=== PATIENT | female | born 1950 | race Caucasian/White ===

== ENCOUNTER 2017-04-15 13:51 | Inpatient (IN) | payer OTHER ==
[~2017-04-15] VITALS: Ht 157.5 cm; Wt 49.8 kg
[~2017-04-15 13:51] MED LIST: ALBU8.5H8 INH; DIAZ2TAB PO; LOSA100T6 PO; MORP-52 PO; PERCOCET PO; PREMARIN PO; XANAX PO; ZOLOFT PO
[2017-04-15] MEDS ORDERED: SODIUM CHLORIDE 0.9% 1,000ML IVBOLUS ONE (15:00)
[2017-04-15] MEDS ORDERED: ONDANSETRON 2MG/ML, 2ML IVPush ONE (15:00)
[2017-04-15 15:20] LABS: BASOPHILS # (AUTO) 0.02 x10^3/uL (0-0.1); BASOPHILS % (AUTO) 0 % (0-1); EOSINOPHILS % (AUTO) 0 % (1-7); LYMPHOCYTES # (AUTO) 2.04 x10^3/uL (1-3.4); LYMPHOCYTES % (AUTO) 21 % (22-44); MD NO; MEAN CORPUSCULAR HGB CONC 34.5 g/dL (32.4-35.8); MEAN CORPUSCULAR VOLUME 95.9 fL (80-100); MEAN PLATELET VOLUME 8.2 fL (7.4-10.4); MONOCYTES # (AUTO) 0.91 x10^3/uL (0.2-0.8); MONOCYTES % (AUTO) 10 % (2-9); NEUTROPHILS # (AUTO) 6.63 x10^3/uL (1.8-6.8); NEUTROPHILS % (AUTO) 69 % (42-75); PLATELET COUNT 386 x10^3/uL (130-400); RED BLOOD COUNT 4.65 x10^6/uL (3.82-5.3); RED CELL DISTRIBUTION WIDTH 13.8 % (9.6-15.2)
[2017-04-15] MEDS ORDERED: ONDANSETRON 2MG/ML, 2ML ONE (15:20)
[2017-04-15 15:45] LABS: ALANINE AMINOTRANSFERASE 15 U/L (12-78); ALBUMIN 3.4 g/dL (3.4-5.0); ALKALINE PHOSPHATASE 122 U/L (45-117); ANION GAP 15 mmol/L (5-15); BILIRUBIN,TOTAL 0.4 mg/dL (0.2-1.0); CALCIUM 8.4 mg/dL (8.5-10.1); CHLORIDE 98 mmol/L (98-107); CREATININE 2.77 mg/dL (0.55-1.02); TOTAL PROTEIN 8.2 g/dL (6.4-8.2)
[2017-04-15] MEDS ORDERED: SODIUM CHLORIDE 0.9% 1,000 ML IV ONE (16:17)
[2017-04-15 16:28] LABS: CLOSTRIDIUM DIFFICILE ANTIGEN NEGATIVE; CLOSTRIDIUM DIFFICILE TOXIN NEGATIVE (Negative)
[2017-04-15] MEDS ORDERED: MORPHINE SULFATE 4 MG/ML, 1ML IVPush PRN (16:30)
[2017-04-15] MEDS ORDERED: MORPHINE SULFATE 4 MG/ML, 1ML ONE (16:40)
[2017-04-15 18:04] LABS: MICROSCOPIC INDICATED
[2017-04-15 18:16] LABS: CULTURE INDICATED? YES
[2017-04-15] MEDS ORDERED: POTASSIUM CHLORIDE 40 MEQ in SODIUM CHLORIDE 0.9% 500 ML IV ONE (18:30)
[2017-04-15] MEDS ORDERED: NS + 20MEQ KCL 1,000 ML IV SCH (18:41)
[2017-04-15] MEDS ORDERED: DOCUSATE 100 MG CAPSULE PO PRN (19:00)
[2017-04-15] MEDS ORDERED: ACETAMINOPHEN 325 MG TABLET PO PRN (19:00)
[2017-04-15] MEDS ORDERED: POLYETHYLENE GLYCOL 17 GM PACKET PO PRN (19:00)
[2017-04-15] MEDS ORDERED: LOSA50TA6 PO (20:49)
[2017-04-15] MEDS ORDERED: ALPR-475 PO (20:49)
[2017-04-15] MEDS ORDERED: VENL150C PO (20:49)
[2017-04-15 21:02] VITALS: BP 107/69
[2017-04-15] MEDS: morphine SULFATE 10 MG/ML, 1ML IVPush PRN (22:00)
[2017-04-15] MEDS: HEPARIN 5,000 UNITS/ML, 1ML SQ SCH (22:01)
[2017-04-15 23:14] LABS: ANION GAP 11 mmol/L (5-15); CALCIUM 7.2 mg/dL (8.5-10.1); CHLORIDE 107 mmol/L (98-107); CREATININE 2.07 mg/dL (0.55-1.02)
[2017-04-15] MEDS ORDERED: MAGNESIUM SULFATE PMX 4GM/100M 100 ML IV ONE (23:30)
[2017-04-15] MEDS ORDERED: POTASSIUM CHLORIDE 20 MEQ TAB.ER.PRT PO SCH (23:30)
[2017-04-16 00:45] VITALS: BP 115/66
[2017-04-16] MEDS: morphine SULFATE 10 MG/ML, 1ML IVPush PRN ×4 (03:33→19:04)
[2017-04-16] MEDS: HEPARIN 5,000 UNITS/ML, 1ML SQ SCH ×3 (04:31→22:14)
[2017-04-16 06:32] LABS: CHLORIDE 110 mmol/L (98-107)
[2017-04-16 06:38] LABS: ANION GAP 10 mmol/L (5-15); CALCIUM 7.9 mg/dL (8.5-10.1); CREATININE 1.79 mg/dL (0.55-1.02)
[2017-04-16 06:40] VITALS: BP 144/80
[2017-04-16] MEDS ORDERED: POTASSIUM CHLORIDE 20 MEQ TAB.ER.PRT PO SCH (08:00)
[2017-04-16] MEDS: LOPERAMIDE 2 MG CAPSULE PO PRN ×3 (08:24→19:04)
[2017-04-16] MEDS ORDERED: MORPHINE SULFATE 4 MG/ML, 1ML ONE ×3 (08:30→19:00)
[2017-04-16] MEDS: POTASSIUM CHLORIDE 20 MEQ TAB.ER.PRT PO SCH ×2 (09:27→22:14)
[2017-04-16] MEDS: SODIUM CHLORIDE 0.9% 1,000 ML IV SCH ×2 (12:14→12:26)
[2017-04-16 13:15] VITALS: BP 108/70
[2017-04-16 20:29] VITALS: BP 103/62
[2017-04-16] MEDS: ONDANSETRON 2MG/ML, 2ML IVPush PRN (22:14)
[2017-04-16] MEDS: HYDROcodone/APAP 5/325 TABLET PO PRN (22:14)
[2017-04-17] MEDS: HYDROcodone/APAP 5/325 TABLET PO PRN ×4 (01:59→20:33)
[2017-04-17] MEDS: LOPERAMIDE 2 MG CAPSULE PO PRN ×3 (01:59→15:07)
[2017-04-17 02:03] VITALS: BP 127/77
[2017-04-17] MEDS: HEPARIN 5,000 UNITS/ML, 1ML SQ SCH ×3 (05:54→20:33)
[2017-04-17 07:20] VITALS: BP 137/91
[2017-04-17] MEDS: SODIUM CHLORIDE 0.9% 1,000 ML IV SCH ×2 (08:27→19:32)
[2017-04-17 09:58] LABS: ANION GAP 8 mmol/L (5-15); CALCIUM 7.7 mg/dL (8.5-10.1); CHLORIDE 116 mmol/L (98-107); CREATININE 1.29 mg/dL (0.55-1.02)
[2017-04-17] MEDS: POTASSIUM CHLORIDE 20 MEQ TAB.ER.PRT PO SCH ×3 (10:07→20:34)
[2017-04-17 12:35] VITALS: BP 120/73
[2017-04-17] MEDS ORDERED: GADOBUTROL 7.5 MMOL/7.5 ML PFS ONE (13:04)
[2017-04-17] MEDS ORDERED: MORPHINE SULFATE 4 MG/ML, 1ML ONE (16:39)
[2017-04-17] MEDS: morphine SULFATE 10 MG/ML, 1ML IVPush PRN ×2 (16:48→22:32)
[2017-04-17 21:03] VITALS: BP 112/73
[2017-04-17 23:00] VITALS: BP 144/82
[2017-04-18 03:05] VITALS: BP 138/80
[2017-04-18] MEDS: morphine SULFATE 10 MG/ML, 1ML IVPush PRN (03:27)
[2017-04-18] MEDS: SODIUM CHLORIDE 0.9% 1,000 ML IV SCH (03:31)
[2017-04-18] MEDS: HEPARIN 5,000 UNITS/ML, 1ML SQ SCH ×3 (05:00→22:02)
[2017-04-18 06:02] LABS: ANION GAP 7 mmol/L (5-15); CALCIUM 7.3 mg/dL (8.5-10.1); CHLORIDE 120 mmol/L (98-107); CREATININE 1.13 mg/dL (0.55-1.02)
[2017-04-18 07:00] VITALS: BP 133/77
[2017-04-18] MEDS: POTASSIUM CHLORIDE 20 MEQ TAB.ER.PRT PO SCH ×3 (08:00→22:00)
[2017-04-18] MEDS: HYDROcodone/APAP 5/325 TABLET PO PRN ×4 (08:57→22:02)
[2017-04-18] MEDS: LOPERAMIDE 2 MG CAPSULE PO PRN (08:59)
[2017-04-18] MEDS: CHOLESTYRAMINE LIGHT 4GM PACKET PO SCH ×2 (12:36→22:00)
[2017-04-18 13:04] VITALS: BP 137/78
[2017-04-18] MEDS ORDERED: OMNIPAQUE 350 MG/ML, 100ML BOTTLE ONE (17:15)
[2017-04-18] MEDS: PANCRELIPASE 24,000 CAPSULE.DR PO SCH (18:02)
[2017-04-18 20:37] VITALS: BP 145/91
[2017-04-19 00:58] VITALS: BP 115/77
[2017-04-19] MEDS: HYDROcodone/APAP 5/325 TABLET PO PRN ×5 (05:07→22:40)
[2017-04-19] MEDS: HEPARIN 5,000 UNITS/ML, 1ML SQ SCH ×3 (05:07→20:25)
[2017-04-19 06:02] LABS: ANION GAP 10 mmol/L (5-15); CALCIUM 7.7 mg/dL (8.5-10.1); CHLORIDE 115 mmol/L (98-107)
[2017-04-19 06:04] LABS: CREATININE 1.09 mg/dL (0.55-1.02)
[2017-04-19 07:38] VITALS: BP 112/68
[2017-04-19] MEDS: POTASSIUM CHLORIDE 20 MEQ TAB.ER.PRT PO SCH ×2 (09:00→20:22)
[2017-04-19] MEDS: LOPERAMIDE 2 MG CAPSULE PO PRN ×2 (09:29→16:27)
[2017-04-19] MEDS: PANCRELIPASE 24,000 CAPSULE.DR PO SCH ×3 (09:29→16:27)
[2017-04-19] MEDS: CHOLESTYRAMINE LIGHT 4GM PACKET PO SCH ×2 (09:29→20:17)
[2017-04-19] MEDS: ONDANSETRON 2MG/ML, 2ML IVPush PRN ×3 (09:31→20:23)
[2017-04-19] MEDS ORDERED: MORPHINE SULFATE 4 MG/ML, 1ML ONE (11:35)
[2017-04-19] MEDS: morphine SULFATE 10 MG/ML, 1ML IVPush PRN ×3 (11:41→20:23)
[2017-04-19] MEDS ORDERED: POTASSIUM PHOSPHATE 22 MEQ in SODIUM CHLORIDE 0.9% 500 ML IV ONE (12:00)
[2017-04-19] MEDS ORDERED: MAGNESIUM SULFATE PMX 4GM/100M 100 ML IV ONE (12:00)
[2017-04-19 13:39] VITALS: BP 131/81
[2017-04-19 17:35] LABS: BASOPHILS # (AUTO) 0.02 x10^3/uL (0-0.1); BASOPHILS % (AUTO) 0 % (0-1); EOSINOPHILS # (AUTO) 0.01 x10^3/uL (0-0.4); EOSINOPHILS % (AUTO) 0 % (1-7); INTERNATIONAL NORMALIZED RATIO 0.92 (0.93-1.1); LYMPHOCYTES # (AUTO) 2.52 x10^3/uL (1-3.4); LYMPHOCYTES % (AUTO) 46 % (22-44); MD NO; MEAN CORPUSCULAR HEMOGLOBIN 32.2 pg (27.0-34.8); MEAN CORPUSCULAR VOLUME 97.6 fL (80-100); MEAN PLATELET VOLUME 7.8 fL (7.4-10.4); MONOCYTES # (AUTO) 0.46 x10^3/uL (0.2-0.8); MONOCYTES % (AUTO) 9 % (2-9); NEUTROPHILS # (AUTO) 2.43 x10^3/uL (1.8-6.8); NEUTROPHILS % (AUTO) 45 % (42-75); PLATELET COUNT 364 x10^3/uL (130-400); PROTHROMBIN TIME 9.6 Seconds (9.6-11.5); RED BLOOD COUNT 3.69 x10^6/uL (3.82-5.3); RED CELL DISTRIBUTION WIDTH 13.7 % (9.6-15.2)
[2017-04-19 17:40] LABS: ALANINE AMINOTRANSFERASE 14 U/L (12-78); ALBUMIN 2.7 g/dL (3.4-5.0); ANION GAP 10 mmol/L (5-15); BILIRUBIN, DIRECT 0.1 mg/dL (0.1-0.2); CALCIUM 8.3 mg/dL (8.5-10.1); CHLORIDE 108 mmol/L (98-107); CREATININE 1.16 mg/dL (0.55-1.02)
[2017-04-19 17:42] LABS: ALKALINE PHOSPHATASE 102 U/L (45-117); BILIRUBIN,INDIRECT 0.1 mg/dL (0.0-2.0); BILIRUBIN,TOTAL 0.2 mg/dL (0.2-1.0); TOTAL PROTEIN 6.6 g/dL (6.4-8.2)
[2017-04-19 20:30] VITALS: BP 154/90
[2017-04-20] MEDS: morphine SULFATE 10 MG/ML, 1ML IVPush PRN ×6 (02:22→23:01)
[2017-04-20 02:27] VITALS: BP 121/70
[2017-04-20 05:26] LABS: ALBUMIN 2.9 g/dL (3.4-5.0); CHLORIDE 113 mmol/L (98-107)
[2017-04-20] MEDS: HEPARIN 5,000 UNITS/ML, 1ML SQ SCH ×3 (05:30→21:16)
[2017-04-20 05:31] LABS: ALANINE AMINOTRANSFERASE 14 U/L (12-78); ALKALINE PHOSPHATASE 106 U/L (45-117); ANION GAP 11 mmol/L (5-15); BILIRUBIN,TOTAL 0.2 mg/dL (0.2-1.0); CALCIUM 8.2 mg/dL (8.5-10.1); CREATININE 1.23 mg/dL (0.55-1.02); TOTAL PROTEIN 6.6 g/dL (6.4-8.2)
[2017-04-20] MEDS: PANCRELIPASE 24,000 CAPSULE.DR PO SCH ×3 (08:00→16:37)
[2017-04-20] MEDS: POTASSIUM CHLORIDE 20 MEQ TAB.ER.PRT PO SCH ×3 (08:33→21:00)
[2017-04-20] MEDS: CHOLESTYRAMINE LIGHT 4GM PACKET PO SCH ×2 (08:34→21:00)
[2017-04-20 08:37] VITALS: BP 119/76
[2017-04-20] MEDS: SODIUM CHLORIDE 0.9% 1,000 ML IV SCH ×3 (08:42→23:35)
[2017-04-20] MEDS ORDERED: LOPERAMIDE 2 MG CAPSULE PO PRN (13:00)
[2017-04-20] MEDS: LOPERAMIDE 2 MG CAPSULE PO SCH ×2 (13:26→19:28)
[2017-04-20 14:19] VITALS: BP 121/70
[2017-04-20] MEDS: HYDROcodone/APAP 5/325 TABLET PO PRN ×2 (14:55→21:19)
[2017-04-20] MEDS: ONDANSETRON 2MG/ML, 2ML IVPush PRN (19:28)
[2017-04-20 19:44] VITALS: BP 130/74
[2017-04-21] MEDS: LOPERAMIDE 2 MG CAPSULE PO SCH ×2 (01:25→08:15)
[2017-04-21] MEDS: HYDROcodone/APAP 5/325 TABLET PO PRN ×2 (04:12→09:23)
[2017-04-21] MEDS: HEPARIN 5,000 UNITS/ML, 1ML SQ SCH (05:00)
[2017-04-21 05:14] LABS: BASOPHILS # (AUTO) 0.01 x10^3/uL (0-0.1); BASOPHILS % (AUTO) 0 % (0-1); EOSINOPHILS # (AUTO) 0.01 x10^3/uL (0-0.4); EOSINOPHILS % (AUTO) 0 % (1-7); LYMPHOCYTES # (AUTO) 1.85 x10^3/uL (1-3.4); LYMPHOCYTES % (AUTO) 33 % (22-44); MD NO; MEAN CORPUSCULAR HEMOGLOBIN 33.2 pg (27.0-34.8); MEAN CORPUSCULAR HGB CONC 34.2 g/dL (32.4-35.8); MEAN CORPUSCULAR VOLUME 96.9 fL (80-100); MONOCYTES # (AUTO) 0.56 x10^3/uL (0.2-0.8); MONOCYTES % (AUTO) 10 % (2-9); NEUTROPHILS # (AUTO) 3.23 x10^3/uL (1.8-6.8); NEUTROPHILS % (AUTO) 57 % (42-75); PLATELET COUNT 364 x10^3/uL (130-400); RED BLOOD COUNT 3.16 x10^6/uL (3.82-5.3)
[2017-04-21 05:17] VITALS: BP 130/79
[2017-04-21 05:24] LABS: CHLORIDE 113 mmol/L (98-107)
[2017-04-21 05:37] LABS: ALANINE AMINOTRANSFERASE 11 U/L (12-78); ALBUMIN 2.5 g/dL (3.4-5.0); ALKALINE PHOSPHATASE 97 U/L (45-117); ANION GAP 10 mmol/L (5-15); BILIRUBIN,TOTAL 0.5 mg/dL (0.2-1.0); CALCIUM 7.6 mg/dL (8.5-10.1); TOTAL PROTEIN 5.9 g/dL (6.4-8.2)
[2017-04-21] MEDS: PANCRELIPASE 24,000 CAPSULE.DR PO SCH (08:15)
[2017-04-21] MEDS: SODIUM CHLORIDE 0.9% 1,000 ML IV SCH (08:15)
[2017-04-21] MEDS: morphine SULFATE 10 MG/ML, 1ML IVPush PRN (08:21)
[2017-04-21 08:36] VITALS: BP 119/76
[2017-04-21] MEDS ORDERED: POTASSIUM CHLORIDE 20 MEQ TAB.ER.PRT PO SCH (09:00)
[2017-04-21] MEDS: CHOLESTYRAMINE LIGHT 4GM PACKET PO SCH (09:00)
== END 2017-04-21 12:52 | disposition left against medical advice (07) | DRG 391 ==
LOC: ED 17:32 → EDIP 18:37 → SUATTDRO 18:39 → 5SO 21:14 → 3NE 04-17 22:00
PROVIDERS: ADMIT Family Medicine; ATTEND Family Medicine
DX: K52.9 Noninfective gastroenteritis and colitis, unspecified (principal); N17.0 Acute kidney failure with tubular necrosis; E83.39 Other disorders of phosphorus metabolism; E87.1 Hypo-osmolality and hyponatremia; E83.42 Hypomagnesemia; M41.9 Scoliosis, unspecified; J44.9 Chronic obstructive pulmonary disease, unspecified; E86.0 Dehydration; E87.6 Hypokalemia; G89.29 Other chronic pain; R33.9 Retention of urine, unspecified; R15.9 Full incontinence of feces; K80.20 Calculus of gallbladder without cholecystitis without obstruction; N18.9 Chronic kidney disease, unspecified; I25.2 Old myocardial infarction; Z83.3 Family history of diabetes mellitus; Z90.710 Acquired absence of both cervix and uterus
CPT/HCPCS: 36415; 72158; 74176; 74177; 76700; 80048; 80053; 81001; 82247; 82248; 83605; 83690; 83735; 84100; 85025; 85610; 87086; 87324; 89055; 93005; 96361; 96365; 96375; A9585; J1644; J2405; J3480; Q9967; J2270; J3475; J7030; J7040

== ENCOUNTER 2020-08-01 15:04 | Emergency (ER) | payer OTHER ==
[~2020-08-01] VITALS: Ht 157.5 cm; Wt 39.9 kg
[~2020-08-01 15:04] MED LIST changes: +ALPR0.5T7 PO; +LOSA100T14 PO; -LOSA100T6 PO; +LOSA50TA14 PO; +VENL150C PO
--- NOTE | 2020-08-01 15:31 | NUR ---
SAME TRIAGE NOTE. PT REPORTS "WORMS IN MY STOOL AND COMING OUT OF MY SKIN EVERYWHERE". REPORTS SHE TAKES PROZAC AND LOSARTAN. DENIES DRUG OR ETOH USE. PT HAS MULTIPLE SCABS TO ARMS AND FACE. Addendum: 08/01/20 at 1607 by HBENSON GRANDDAUGHTER AND GRANDSON AT , NOT OFFERING ANY ADDITIONAL HX.
[2020-08-01] MEDS ORDERED: hydrOXYzine 25 MG/ML IM ONE (16:00)
--- NOTE | 2020-08-01 16:07 | NUR ---
PSYCH [employer] SCIENTIST WAS IN TO SEE PT.
--- NOTE | 2020-08-01 16:10 | NUR ---
SPOKE WITH GRANDDAUGHTER IN [facility]. GRANDDAUGHTER STATES THAT PT HAD ACUTE KIDNEY OR LIVER FAILURE, WAS TREATED AT [facility] ABOUT 6 MONTHS AGO. STATES, "SHE NEVER REALLY GOT BETTER. SHE'S REALLY WEAK, SHE DOESN'T EAT." GRANDCHILDREN STATE PT'S HOUSE IS UNKEMPT WITH DOG FECES IN THE HOUSE.
--- NOTE | 2020-08-01 16:15 | NUR ---
PT AMBULATED TO BR WITH CANE. INSTRUCTED ON CLEAN CATCH URINE SAMPLE.
[2020-08-01 16:17] LABS: BASOPHILS % (AUTO) 0 % (0-1); EOSINOPHILS % (AUTO) 5 % (1-7); LYMPHOCYTES % (AUTO) 21 % (22-44); MEAN CORPUSCULAR HEMOGLOBIN 28.6 pg (27.0-34.8); MEAN CORPUSCULAR HGB CONC 32.5 g/dL (32.4-35.8); MONOCYTES % (AUTO) 8 % (2-9); NEUTROPHILS % (AUTO) 67 % (42-75); PLATELET COUNT 370 x10^3/uL (130-400); RED BLOOD COUNT 4.62 x10^6/uL (3.82-5.3); RED CELL DISTRIBUTION WIDTH 22.4 % (9.6-15.2)
[2020-08-01 16:30] LABS: ALANINE AMINOTRANSFERASE 29 U/L (12-78); ALBUMIN 3.6 g/dL (3.4-5.0); ANION GAP 5 mmol/L (5-15); CALCIUM 9.1 mg/dL (8.5-10.1); CHLORIDE 109 mmol/L (98-107); CREATININE 1.34 mg/dL (0.55-1.02); SALICYLATE LEVEL < 1.7 mg/dL (2.8-20.0)
[2020-08-01 16:34] LABS: MICROSCOPIC NOT IND
[2020-08-01 16:36] LABS: ALKALINE PHOSPHATASE 106 U/L (45-117); BILIRUBIN,TOTAL 0.3 mg/dL (0.2-1.0); TOTAL PROTEIN 7.4 g/dL (6.4-8.2)
[2020-08-01] MEDS ORDERED: FLUO20CA19 PO (16:40)
--- NOTE | 2020-08-01 16:46 | NUR ---
THROUGHPUT RN: MYRA DECLINED PT SECONDARY TO INSURANCE.
--- NOTE | 2020-08-01 16:47 | NUR ---
PT MEDICATED PER ORDERS. GRANDCHILDREN LEFT; GRANDDAUGHTER TO COME BACK. PT STATES SHE WEARS 2L O2 AT HOME "WHEN I MOVE AROUND A LOT". PLACED ON 2L NC, VSS.
[2020-08-01 16:51] LABS: MD SCAN
--- NOTE | 2020-08-01 17:49 | NUR ---
THROUGHPUT RN: PACKET FAXED TO [facility], [facility], [facility], [facility], AND [facility].
--- NOTE | 2020-08-01 17:59 | NUR ---
THROUGHPUT RN: PT W/ [place] [employer] [facility]. SPOKE W/ ALIREZA AT [facility] WHO STATES SHE WILL FIND OUT MORE INFORMATION FROM TRIAGE OFFICER AND CALL BACK.
[2020-08-01 18:00] VITALS: BP 105/69
--- NOTE | 2020-08-01 18:00 | NUR ---
RV'WD LEGAL HOLD AND PLAN TO TRANSFER PT TO PSYCH FACILITY WITH PT AND GRANDDAUGHTER. GRANDDAUGHTER EDUARD LEAVING FOR THE NIGHT, MAY BE CALLED WITH ANY UPDATES/CONCERNS.
[2020-08-01 18:19] LABS: AMPHETAMINE SCREEN, URINE Positive (Negative); BARBITURATE SCREEN, URINE Negative (Negative); BENZODIAZEPINE SCREEN, URINE Positive (Negative); CANNABINOID SCREEN, URINE Positive (Negative); COCAINE SCREEN, URINE Negative (Negative); METHADONE SCREEN, URINE Negative (Negative); OPIATE SCREEN, URINE Negative (Negative)
--- NOTE | 2020-08-01 18:31 | NUR ---
THROUGHPUT RN: UDS COMPLETED. [facility], [facility], [facility], [facility], AND [facility].
--- NOTE | 2020-08-01 18:35 | NUR ---
THROUGHPUT RN: STEVEN LAY AT [facility] TO PS[facility]CH FACILITY AND UPDATE [facility] PRN.
--- NOTE | 2020-08-01 18:54 | NUR ---
THROUGHPUT RN: ALIREZA FROM [facility] NOTIFIED PT TO BE TRANSPORTED TO [facility].
--- NOTE | 2020-08-01 19:00 | NUR ---
PT MOVED TO RM 38 WITH SITTER OUTSIDE ROOM. AGAIN [facility]'WD WITH PT THAT SHE IS ON LEGAL HOLD AND WILL BE TRANSFERRED TO [facility]. PT UPSET BUT UNDERSTANDS THAT SHE IS UNABLE TO REFUSE TRANSFER. PT TALKING/TEXTING ON THE PHONE WITH FAMILY. REPORTED TO STEVEN WARD FOR CONTINUED CARE.
--- NOTE | 2020-08-01 19:26 | NUR ---
Note belkis in EDM - 08/01/20 at 1927 by BAKARI First contact with pt, calm cooperative, mom at bedside. agrees with POC. 1924: Report to ED Mueller on peds. To be tx upstairs.
--- NOTE | 2020-08-01 20:12 | NUR ---
Report to Samantha at [facility]. Pt gave permission for this nurse to disclose all pt information including labs and reason for tx. This nurse spoke with Yasir son [phone] in front of pt to explain process. Son feels very guilty he says because he told her to come to ER. Pt tx ambulatory with all belongings to [facility].
== END 2020-08-01 20:52 | disposition home or self-care (01) ==
LOC: ED 16:25
DX: F22 Delusional disorders (principal); R64 Cachexia; R62.7 Adult failure to thrive; R07.9 Chest pain, unspecified; I12.9 Hypertensive chronic kidney disease with stage 1 through stage 4 chronic kidney disease, or unspecified chronic kidney disease; N18.9 Chronic kidney disease, unspecified; I25.10 Atherosclerotic heart disease of native coronary artery without angina pectoris; Z68.1 Body mass index [BMI] 19.9 or less, adult
CPT/HCPCS: 36415; 71045; 80053; 80299; 80307; 80320; 80329; 81003; 85025; 87040; 96372; 99284; J3410; G0480